=== PATIENT | female | born 1960 ===

== ENCOUNTER → 2017-10-27 | Outpatient (REF) ==
[2017-10-27 16:00] LABS: ALBUMIN 3.8 gm/dL (3.5-5.0); CALCIUM 8.5 mg/dL (8.4-10.2)
== END ==
LOC: ZMSC 15:42
PROVIDERS: Otolaryngology
DX: Z01.89 Encounter for other specified special examinations (principal)

== ENCOUNTER → 2017-10-28 | Outpatient (REF) ==
[2017-10-28 05:52] LABS: ALBUMIN 3.9 gm/dL (3.5-5.0); CALCIUM 8.8 mg/dL (8.4-10.2); PHOSPHOROUS 4.9 mg/dL (2.5-4.5)
[2017-10-28 15:38] LABS: ALBUMIN 3.9 gm/dL (3.5-5.0); CALCIUM 8.8 mg/dL (8.4-10.2); PHOSPHOROUS 3.8 mg/dL (2.5-4.5)
== END ==
LOC: ZMSC 04:51
PROVIDERS: Otolaryngology
DX: Z01.89 Encounter for other specified special examinations (principal)